=== PATIENT | female | born 1985 | race Hispanic/Latino ===

== ENCOUNTER 2022-12-20 21:27 | Emergency (ER) | payer OTHER ==
[~2022-12-20] VITALS: Ht 167.6 cm; Wt 80.7 kg
[2022-12-20] MEDS ORDERED: TRAMADOL HCL 50 MG TAB ONE (22:49)
[2022-12-20 23:00] VITALS: O2SAT 97
[2022-12-20] MEDS ORDERED: TRAMADOL HCL 50 MG TAB PO ONE (23:00)
[2022-12-20] MEDS ORDERED: ULTRAM 50MG50 MG PO (23:01)
[2022-12-20] MEDS ORDERED: IBUPROFEN600 MG PO (23:03)
== END 2022-12-20 23:31 | disposition home or self-care (01) ==
LOC: FSED 21:46
DX: M79.662 Pain in left lower leg (principal); S86.812A Strain of other muscle(s) and tendon(s) at lower leg level, left leg, initial encounter; X50.0XXA Overexertion from strenuous movement or load, initial encounter; Y99.0 Civilian activity done for income or pay; I10 Essential (primary) hypertension
CPT/HCPCS: 99283